=== PATIENT | female | born 2000 | race Caucasian/White ===

== ENCOUNTER 2020-02-02 04:16 | Emergency (ER) | payer OTHER ==
[2020-02-02] MEDS ORDERED: Sulfamethoxazole/Trimethoprim 800-160 MG Tab PO ONE (04:17)
[2020-02-02] MEDS ORDERED: Ketorolac 30 MG/ML SDV IVPUSH ONE (04:44)
[2020-02-02] MEDS ORDERED: Sodium Chloride 0.9% 1,000 ML IV SCH (04:45)
[2020-02-02] MEDS ORDERED: Iopamidol 755 Mg/ML 100 ML Bottle IV ONE (04:50)
--- NOTE | 2020-02-02 06:10 | EDM.PDOC ---
ED HPI GENERAL MEDICAL PROBLEM - General Chief Complaint: Abdominal Pain Stated Complaint: STOMACH PAIN Time Seen by Provider: 02/02/20 04:20 Source of Information: Reports: Patient History Limitations: Reports: No Limitations - History of Present Illness INITIAL COMMENTS - FREE TEXT/NARRATIVE: Patient presented to the ED because of LLQ pain which started 4 days ago. the pain is cramping,intermittent,8/10. There is no fever,chills, N/V/D. Denies any urinary symptoms. LLQ Pain Score (Numeric/FACES): 8 - Related Data Allergies Allergy/AdvReac Type Severity Reaction Status Date / Time No Known Allergies Allergy Verified 02/02/20 04:29 Home Meds: Home Meds NK [No Known Home Meds] 02/02/20 [History] Past Medical History - Past Health History Medical/Surgical History: Denies Medical/Surgical History Social & Family History - Tobacco Use Tobacco Use Status *Q: Current Every Day Tobacco User Years of Tobacco use: 4 Packs/Tins Daily: 0.5 ED ROS GENERAL - Review of Systems Review Of Systems: See Below Constitutional: Reports: No Symptoms HEENT: Reports: No Symptoms Respiratory: Reports: No Symptoms Cardiovascular: Reports: No Symptoms Endocrine: Reports: No Symptoms GI/Abdominal: Reports: Abdominal Pain : Reports: No Symptoms Musculoskeletal: Reports: No Symptoms Skin: Reports: No Symptoms Neurological: Reports: No Symptoms Psychiatric: Reports: No Symptoms Hematologic/Lymphatic: Reports: No Symptoms ED EXAM, GI/ABD - Physical Exam Exam: See Below Exam Limited By: No Limitations General Appearance: Alert, No Apparent Distress Ears: Normal External Exam Nose: Normal Inspection, Normal Mucosa Throat/Mouth: Normal Inspection, Normal Lips Head: Atraumatic, Normocephalic Neck: Normal Inspection, Supple, Non-Tender, Full Range of Motion Respiratory/Chest: No Respiratory Distress, Lungs Clear, Normal Breath Sounds Cardiovascular: Normal Peripheral Pulses, Regular Rate, Rhythm, No Edema, No Gallop GI/Abdominal Exam: Soft, Other (TT LLQ) Back Exam: Normal Inspection, Full Range of Motion Extremities: Normal Inspection, Normal Range of Motion, Non-Tender Neurological: Alert, Oriented, CN II-XII Intact Course - Vital Signs Text/Narrative:: Labs/CT result was discussed with patient NS 1 L bolus Toradol 30 mg IV x1 Last Recorded V/S: Last Vital Signs Temp 35.8 C L 02/02/20 04:16 Pulse 74 02/02/20 04:16 Resp 17 02/02/20 04:16 BP 141/89 H 02/02/20 04:16 Pulse Ox 100 02/02/20 04:16 - Orders/Labs/Meds Orders: Active Orders 24 hr Category Date Time Status Abdomen Pelvis w Cont [CT] Stat Exams 02/02/20 04:42 Taken CULTURE URINE [RM] Stat Lab 02/02/20 04:45 Received Sodium Chloride 0.9% [Normal Saline] 1,000 ml Med 02/02/20 04:45 Active IV ASDIRECTED Medication Orders Sodium Chloride (Normal Saline) 1,000 mls @ 999 mls/hr IV ASDIRECTED SOLANGE Last Admin: 02/02/20 04:48 Dose: 999 mls/hr Documented by: SUSAN Labs: Laboratory Tests 02/02/20 02/02/20 02/02/20 Range/Units 04:42 04:45 05:05 WBC 10.2 (4.5-12.0) X10-3/uL RBC 4.06 (3.23-5.20) x10(6)uL Hgb 10.8 L (11.5-15.5) g/dL Hct 32.8 (30.0-51.3) % MCV 80.8 (80-96) fL MCH 26.6 L (27.7-33.6) pg MCHC 32.9 (32.2-35.4) g/dL RDW 15.0 (11.5-15.5) % Plt Count 299 (125-369) X10(3)uL MPV 7.2 L (7.4-10.4) fL Neut % (Auto) 69.8 (46-82) % Lymph % (Auto) 22.8 (13-37) % [place] % (Auto) 4.7 (4-12) % Eos % (Auto) 2 (1.0-5.0) % Baso % (Auto) 0 (0-2) % Neut # (Auto) 7.2 (1.6-8.3) # Lymph # (Auto) 2.3 (0.6-5.0) # [place] # (Auto) 0.5 (0.0-1.3) # Eos # (Auto) 0.2 (0.0-0.8) # Baso # (Auto) 0.0 (0.0-0.2) # Sodium (135-145) mmol/L Potassium (3.5-5.3) mmol/L Chloride (100-110) mmol/L Carbon Dioxide (21-32) mmol/L BUN (7-18) mg/dL Creatinine (0.55-1.02) mg/dL Est Cr Clr Drug Dosing mL/min Estimated GFR (MDRD) (>60) BUN/Creatinine Ratio (9-20) Glucose (80-116) mg/dL Calcium (8.6-10.2) mg/dL Total Bilirubin (0.1-1.3) mg/dL AST (5-25) IU/L ALT (12-36) U/L Alkaline Phosphatase (56-112) IU/L Total Protein (6.0-8.0) g/dL Albumin (3.5-5.2) g/dL Globulin g/dL Albumin/Globulin Ratio Amylase (25-115) U/L Lipase (73-393) U/L Urine Color Yellow (YELLOW) Urine Appearance Clear (CLEAR) Urine pH 5.0 (5.0-6.5) Ur Specific [place] 1.020 (1.010-1.025) Urine Protein Negative (NEGATIVE) mg/dL Urine Glucose (UA) Normal (NORMAL) mg/dL Urine Ketones 15 H (NEGATIVE) mg/dL Urine Occult Blood Large H (NEGATIVE) Urine Nitrite Negative (NEGATIVE) Urine Bilirubin Negative (NEGATIVE) Urine Urobilinogen Normal (NEGATIVE) mg/dL Ur Leukocyte Esterase Small H (NEGATIVE) Urine RBC 5-10 H (0-5) Urine WBC 10-20 H (0-5) Ur Squamous Epith Cells Few H (NS,R,O) Urine Bacteria Few H (NS) Urine HCG, Qual Negative (NEGATIVE) 02/02/20 02/02/20 Range/Units 05:05 05:05 WBC (4.5-12.0) X10-3/uL RBC (3.23-5.20) x10(6)uL Hgb (11.5-15.5) g/dL Hct (30.0-51.3) % MCV (80-96) fL MCH (27.7-33.6) pg MCHC (32.2-35.4) g/dL RDW (11.5-15.5) % Plt Count (125-369) X10(3)uL MPV (7.4-10.4) fL Neut % (Auto) (46-82) % Lymph % (Auto) (13-37) % [place] % (Auto) (4-12) % Eos % (Auto) (1.0-5.0) % Baso % (Auto) (0-2) % Neut # (Auto) (1.6-8.3) # Lymph # (Auto) (0.6-5.0) # [place] # (Auto) (0.0-1.3) # Eos # (Auto) (0.0-0.8) # Baso # (Auto) (0.0-0.2) # Sodium 139 (135-145) mmol/L Potassium 4.1 (3.5-5.3) mmol/L Chloride 104 (100-110) mmol/L Carbon Dioxide 28 (21-32) mmol/L BUN 14 (7-18) mg/dL Creatinine 0.8 (0.55-1.02) mg/dL Est Cr Clr Drug Dosing 113.16 mL/min Estimated GFR (MDRD) > 60 (>60) BUN/Creatinine Ratio 17.5 (9-20) Glucose 106 (80-116) mg/dL Calcium 8.3 L (8.6-10.2) mg/dL Total Bilirubin 0.3 (0.1-1.3) mg/dL AST 17 (5-25) IU/L ALT 27 (12-36) U/L Alkaline Phosphatase 39 L (56-112) IU/L Total Protein 6.5 (6.0-8.0) g/dL Albumin 3.1 L (3.5-5.2) g/dL Globulin 3.4 g/dL Albumin/Globulin Ratio 0.9 Amylase 39 (25-115) U/L Lipase 58 L (73-393) U/L Urine Color (YELLOW) Urine Appearance (CLEAR) Urine pH (5.0-6.5) Ur Specific [place] (1.010-1.025) Urine Protein (NEGATIVE) mg/dL Urine Glucose (UA) (NORMAL) mg/dL Urine Ketones (NEGATIVE) mg/dL Urine Occult Blood (NEGATIVE) Urine Nitrite (NEGATIVE) Urine Bilirubin (NEGATIVE) Urine Urobilinogen (NEGATIVE) mg/dL Ur Leukocyte Esterase (NEGATIVE) Urine RBC (0-5) Urine WBC (0-5) Ur Squamous Epith Cells (NS,R,O) Urine Bacteria (NS) Urine HCG, Qual (NEGATIVE) Meds: Medications Generic Name Dose Route Start Last Admin Trade Name Freq PRN Reason Stop Dose Admin Sodium Chloride 1,000 mls @ 999 mls/hr 02/02/20 04:45 02/02/20 04:48 Normal Saline IV 999 mls/hr ASDIRECTED SOLANGE Administration Discontinued Medications Generic Name Dose Route Start Last Admin Trade Name Freq PRN Reason Stop Dose Admin Iopamidol 100 ml 02/02/20 04:50 02/02/20 05:03 Isovue-370 (76%) IV 02/02/20 04:51 100 ml . DIRECTED ONE Administration Ketorolac Tromethamine 30 mg 02/02/20 04:44 02/02/20 04:47 Toradol IVPUSH 02/02/20 04:45 30 mg ONETIME ONE Administration Departure - Departure Time of Disposition: 06:10 Disposition: Home, Self-Care 01 Condition: Good Clinical Impression: [place], UTI (urinary tract infection) - Discharge Information Instructions: Adelso [id number]-[id number], Urinary Tract Infection, Adult, [id number] Referrals: PCP,None [Primary Care Provider] - Forms: ED Department Discharge Additional Instructions: Please read discharge instructions on [place]jake/ovulation pain and UTI Increase oral fluids Take ibuprofen 800 mg with Tylenol 1000 mg every 8 hours as needed for pain Bactrim DS twice daily for 5 days(for your UTI) Follow up as needed Sepsis Event Note (ED) - Evaluation Sepsis Screening Result: No Definite Risk - Focused Exam Vital Signs: Vital Signs Temp Pulse Resp BP Pulse Ox 02/02/20 04:16 35.8 C L 74 17 141/89 H 100 - My Orders Last 24 Hours: My Active Orders 02/02/20 04:42 Abdomen Pelvis w Cont [CT] Stat 02/02/20 04:45 CULTURE URINE [RM] Stat Sodium Chloride 0.9% [Normal Saline] 1,000 ml IV ASDIRECTED - Assessment/Plan Last 24 Hours: My Active Orders 02/02/20 04:42 Abdomen Pelvis w Cont [CT] Stat 02/02/20 04:45 CULTURE URINE [RM] Stat Sodium Chloride 0.9% [Normal Saline] 1,000 ml IV ASDIRECTED
== END 2020-02-02 06:17 | disposition home or self-care (01) ==
LOC: FB.ED 04:16
DX: N39.0 Urinary tract infection, site not specified (principal); N94.0 Mittelschmerz; F17.210 Nicotine dependence, cigarettes, uncomplicated
CPT/HCPCS: 36415; 74177; 80053; 81001; 81025; 82150; 83690; 85025; 87086; 96374; 99284; A9270; J1885; J7030; Q9967

== ENCOUNTER 2021-03-06 21:32 | Emergency (ER) | payer SELFPAY ==
[2021-03-06] MEDS ORDERED: cefTRIAXone 1 GM Vial IM ONE (21:59)
[2021-03-06] MEDS ORDERED: Ketorolac 30 MG/ML SDV IM ONE (22:00)
--- NOTE | 2021-03-06 22:09 | EDM.PDOC ---
ED HPI GENERAL MEDICAL PROBLEM - General Stated Complaint: EAR ACHE LEFT SIDE FACE PAIN Time Seen by Provider: 03/06/21 21:45 Source of Information: Reports: Patient - History of Present Illness INITIAL COMMENTS - FREE TEXT/NARRATIVE: 20-year-old lady came to the emergency department due to severe left ear pain. She states the pain started about 4 days ago has gotten progressively worse. She has tried taking Tylenol and/or ibuprofen [id number] but with little or no relief. She has not had any visits with medical providers in this area and just moved to this area about a year and a half ago. She recently returned from a trip to [place] approximately 6 days ago. She was tested and was negative for COVID-19 prior to her flight home. She denies fever, cough, upper respiratory symptoms, chest pain, shortness of breath, change in bowel or bladder habits. - Related Data Allergies Allergy/AdvReac Type Severity Reaction Status Date / Time No Known Allergies Allergy Verified 02/02/20 04:29 Home Meds: Home Meds Amoxicillin/Potassium Clav [Augmentin 875-125 Tablet] 1 each PO BID #20 tablet 03/06/21 [Rx] Past Medical History - Past Health History Medical/Surgical History: Denies Medical/Surgical History ED ROS ENT - Review of Systems Review Of Systems: See Below Constitutional: Reports: No Symptoms HEENT: Reports: Ear Pain Respiratory: Reports: No Symptoms Cardiovascular: Reports: No Symptoms Endocrine: Reports: No Symptoms GI/Abdominal: Reports: No Symptoms : Reports: No Symptoms Musculoskeletal: Reports: No Symptoms Skin: Reports: No Symptoms Neurological: Reports: No Symptoms Psychiatric: Reports: No Symptoms Hematologic/Lymphatic: Reports: No Symptoms Immunologic: Reports: No Symptoms ED EXAM, ENT - Physical Exam Exam: See Below Exam Limited By: No Limitations General Appearance: Alert, Mild Distress Eye Exam: Left Eye: Conjunctival Injection, Bilateral Eye: EOMI Ears: TM Bulging, TM Erythema, TM Perforation, Other (Right tympanic membrane is ruptured with purulent discharge, left tympanic membrane shows significant erythema, edema, purulent discharge through the membrane but possible perforation is obscured by purulent discharge at this time) Head: Atraumatic, Normocephalic Neck: Normal Inspection Respiratory/Chest: No Respiratory Distress, Lungs Clear Cardiovascular: Regular Rate, Rhythm GI/Abdominal: Normal Bowel Sounds, Soft, Non-Tender Back: Normal Inspection Extremities: Normal Inspection Neurological: Alert, Oriented, CN II-XII Intact, Normal Cognition, Normal Gait Psychiatric: Tearful Skin: Warm, Dry Course - Vital Signs Text/Narrative:: Visual inspection shows obvious perforation of the right tympanic membrane with likely perforation of the left with significant purulent discharge, erythema, edema. Patient given 30 mg Toradol IM and 1 g ceftriaxone IM. Patient sent home with a prescription for Augmentin 875/125 for 10 days. - Orders/Labs/Meds Meds: Medications Discontinued Medications Generic Name Dose Route Start Last Admin Trade Name Dino PRN Reason Stop Dose Admin Ceftriaxone Sodium 1 gm 03/06/21 21:59 Ceftriaxone 1 Gm Vial IM 03/06/21 22:00 ONETIME ONE Ketorolac Tromethamine 30 mg 03/06/21 22:00 Ketorolac 30 Mg/Ml Sdv IM 03/06/21 22:01 ONETIME ONE Departure - Departure Time of Disposition: 22:08 Disposition: Home, Self-Care 01 Condition: Fair Clinical Impression: Acute otitis media, bilateral, Perforated tympanic membrane of both ears on examination - Discharge Information *PRESCRIPTION DRUG MONITORING PROGRAM REVIEWED*: Not Applicable *COPY OF PRESCRIPTION DRUG MONITORING REPORT IN PATIENT JESSICA: Not Applicable Prescriptions: Amoxicillin/Potassium Clav [Augmentin 875-125 Tablet] 1 each PO BID #20 tablet Instructions: Otitis Media, Adult, [id number], Eardrum Rupture, [id number] Referrals: PCP,None [Primary Care Provider] - Additional Instructions: Patient instructed to take antibiotics as directed until completed. Patient instructed to follow-up with a primary care physician because she will likely need to be evaluated and treated by ear nose and throat physician. Patient instructed to drink plenty of fluids and to alternate Tylenol and ibuprofen for pain control.
== END 2021-03-06 22:20 | disposition home or self-care (01) ==
LOC: FB.ED 21:32
DX: H66.93 Otitis media, unspecified, bilateral (principal); H72.93 Unspecified perforation of tympanic membrane, bilateral
CPT/HCPCS: 96372; 99282; J0696; J1885

== ENCOUNTER 2023-05-22 16:28 | Emergency (ER) | payer OTHER ==
[2023-05-26 17:45] LABS: HEPATITIS B CORE ANTIBODY,IGM Negative (Negative); HEPATITIS C AB CIA INTERP Negative (Negative); HEPATITIS C ANTIBODY CIA INDEX 0.18 IV
[2023-05-26 18:22] LABS: HIV 1,2 COMBO ANTIGEN/ANTIBODY Negative (Negative)
== END 2023-05-22 17:12 | disposition home or self-care (01) ==
LOC: FB.ED 16:28
DX: S61.230A Puncture wound without foreign body of right index finger without damage to nail, initial encounter (principal); W46.0XXA Contact with hypodermic needle, initial encounter
CPT/HCPCS: 36415; 86705; 86803; 87389; 99283